=== PATIENT | male | born 1950 | race Caucasian/White ===

== ENCOUNTER 2018-10-22 21:56 | Inpatient (IN) | payer MEDICARE, BC ==
[~2018-10-22] VITALS: Ht 182.9 cm; Wt 90.0 kg
[2018-10-22 23:29] LABS: BASOPHILS # (AUTO) 0.1 X10'3 (0-0.2); BASOPHILS % (AUTO) 1.2 % (0-1); EOSINOPHILS # (AUTO) 0.3 X10'3 (0-0.9); HEMATOCRIT 24.4 % (42.0-52.0); LYMPHOCYTES # (AUTO) 1.5 X10'3 (1.1-4.8); LYMPHOCYTES % (AUTO) 31.6 % (21-51); MEAN CORPUSCULAR HEMOGLOBIN 29.5 PG (27.0-31.0); MEAN CORPUSCULAR HGB CONC 32.6 g/dL (33.0-36.5); MEAN CORPUSCULAR VOLUME 90.5 FL (78-98); MEAN PLATELET VOLUME 8.2 FL (7.4-10.4); MONOCYTES # (AUTO) 0.7 X10'3 (0-0.9); NEUTROPHILS # (AUTO) 2.1 X10'3 (1.8-7.7); NEUTROPHILS % (AUTO) 45.2 % (42-75); PLATELET COUNT 227 X10'3 (140-440); RED CELL DISTRIBUTION WIDTH 13.2 % (11.5-14.5); WHITE BLOOD COUNT 4.6 X10'3 (4.5-11.0)
--- NOTE | 2018-10-22 23:30 | NUR ---
labs drawn, piv inplace, vss, pt's at bedside. awaiting lab results.
[2018-10-22 23:36] LABS: ALANINE AMINOTRANSFERASE 34 U/L (12-78); ALBUMIN/GLOBULIN RATIO 1.1 (1.1-1.5); ALKALINE PHOSPHATASE 38 IU/L (46-116); ANION GAP 6 (8-16); ASPARTATE AMINO TRANSFERASE 16 U/L (10-37); BILIRUBIN,TOTAL 0.2 MG/DL (0.1-1.0); BLOOD UREA NITROGEN 21 MG/DL (7-18); BUN/CREATININE RATIO 18.6 (5.4-32.0); CALCIUM 8.8 MG/DL (8.5-10.1); CHLORIDE 108 MMOL/L (99-107); CREATININE 1.13 MG/DL (0.60-1.10); GLUCOSE 151 MG/DL (70-104); POTASSIUM 3.8 MMOL/L (3.5-5.1); SODIUM 142 MMOL/L (135-145); TOTAL PROTEIN 5.7 G/DL (6.4-8.2); eGFR 65 ML/MIN
[2018-10-22 23:39] LABS: PARTIAL THROMBOPLASTIN TIME 23 SECONDS (22-32); PROTHROMBIN TIME 10.6 SECONDS (9.0-12.0)
[2018-10-22] MEDS ORDERED: normal saline 1000ML IV soln IVB ONE (23:55)
--- NOTE | 2018-10-22 23:55 | NUR ---
DR. GUY AT BEDSIDE, PT TO BE PUT UP FOR ADMIOSSION.
[2018-10-23] MEDS ORDERED: morphine 4 MG/ML inj SYRINge IV PRN ×2 (00:20)
[2018-10-23] MEDS ORDERED: magnesium hydroxide 30ml (MOM) UD suspension PO PRN (00:20)
[2018-10-23] MEDS ORDERED: HYDROcodone/acetaminophen 5mg/325mg tablet PO PRN (00:20)
[2018-10-23] MEDS ORDERED: acetaminophen 325mg tablet PO PRN (00:20)
[2018-10-23] MEDS ORDERED: ondansetron/PF 4mg/2ml inj IV PRN (00:20)
[2018-10-23] MEDS ORDERED: mag hydrox/Alum hydrox/simeth 30ml oral suspension PO PRN (00:20)
[2018-10-23] MEDS: normal saline 1000ml 1,000 ML IV SCH ×3 (00:55→20:16)
--- NOTE | 2018-10-23 01:08 | NUR ---
REPORT TO CHATA CARLISLE, ORTHO. IPA [id number]. PT WITH STABLE VS AND DENIES ANY PAIN.
[2018-10-23 01:30] VITALS: BP 104/46
[2018-10-23 06:00] VITALS: BP 121/50
--- NOTE | 2018-10-23 06:40 | NUR ---
REPORT GIVEN TO CHATA HUITRON.
[2018-10-23 10:00] VITALS: BP 114/59
[2018-10-23] MEDS ORDERED: magnesium Cl slow-release 64mg tablet PO PRN (10:25)
[2018-10-23] MEDS ORDERED: magnesium 4gm in 100ml NS 100 ML IV PRN (10:25)
[2018-10-23] MEDS ORDERED: potassium Cl 20 mEq SR tablet PO PRN ×2 (10:25)
[2018-10-23] MEDS ORDERED: potassium Cl 40MEQ/NS 500ml 500 ML IV PRN ×2 (10:25)
[2018-10-23] MEDS ORDERED: APIX5TAB3 PO (10:30)
[2018-10-23] MEDS ORDERED: ATOR40TA72 PO (10:30)
[2018-10-23] MEDS ORDERED: TIMO5SOL8 LEFTEYE (10:30)
[2018-10-23 12:33] LABS: BASOPHILS % (AUTO) 0.9 % (0-1); EOSINOPHILS # (AUTO) 0.3 X10'3 (0-0.9); EOSINOPHILS % (AUTO) 5.9 % (0-6); HEMATOCRIT 24.9 % (42.0-52.0); HEMOGLOBIN 8.1 g/dl (14.0-17.9); LYMPHOCYTES # (AUTO) 1.1 X10'3 (1.1-4.8); LYMPHOCYTES % (AUTO) 22.5 % (21-51); MEAN CORPUSCULAR HEMOGLOBIN 29.3 PG (27.0-31.0); MEAN CORPUSCULAR HGB CONC 32.3 g/dL (33.0-36.5); MEAN CORPUSCULAR VOLUME 90.7 FL (78-98); MEAN PLATELET VOLUME 7.8 FL (7.4-10.4); MONOCYTES # (AUTO) 0.7 X10'3 (0-0.9); MONOCYTES % (AUTO) 15.3 % (2-12); NEUTROPHILS # (AUTO) 2.6 X10'3 (1.8-7.7); NEUTROPHILS % (AUTO) 55.4 % (42-75); PLATELET COUNT 228 X10'3 (140-440); RED BLOOD COUNT 2.75 X10'6 (4.70-6.10); RED CELL DISTRIBUTION WIDTH 13.7 % (11.5-14.5); WHITE BLOOD COUNT 4.7 X10'3 (4.5-11.0)
[2018-10-23] MEDS ORDERED: PEG 3350/Na sulf,bicarb,Cl/KCl oral sol 4 liter bottle PO ONE ×2 (12:40→18:00)
[2018-10-23 18:00] VITALS: BP 113/61
[2018-10-23 20:00] VITALS: BP 123/65
[2018-10-23 22:00] VITALS: BP 123/65
[2018-10-24] VITALS (10 sets, daily range): BP systolic 95–130; BP diastolic 46–65
[2018-10-24 06:04] LABS: BASOPHILS % (AUTO) 0.4 % (0-1); EOSINOPHILS # (AUTO) 0.2 X10'3 (0-0.9); EOSINOPHILS % (AUTO) 2.9 % (0-6); HEMATOCRIT 23.2 % (42.0-52.0); HEMOGLOBIN 7.8 g/dl (14.0-17.9); LYMPHOCYTES # (AUTO) 1.3 X10'3 (1.1-4.8); LYMPHOCYTES % (AUTO) 21.4 % (21-51); MEAN CORPUSCULAR HEMOGLOBIN 30.2 PG (27.0-31.0); MEAN CORPUSCULAR HGB CONC 33.7 g/dL (33.0-36.5); MEAN CORPUSCULAR VOLUME 89.6 FL (78-98); MEAN PLATELET VOLUME 8.2 FL (7.4-10.4); MONOCYTES # (AUTO) 0.6 X10'3 (0-0.9); MONOCYTES % (AUTO) 10.7 % (2-12); NEUTROPHILS # (AUTO) 3.9 X10'3 (1.8-7.7); NEUTROPHILS % (AUTO) 64.6 % (42-75); PLATELET COUNT 222 X10'3 (140-440); RED BLOOD COUNT 2.59 X10'6 (4.70-6.10); RED CELL DISTRIBUTION WIDTH 13.8 % (11.5-14.5)
--- NOTE | 2018-10-24 06:05 | NUR ---
Patient in room ORTHO 4024. I have received report from RODRIGO BRIZUELA and had the opportunity to ask questions and assume patient care.
[2018-10-24 06:06] LABS: ALBUMIN 2.6 G/DL (3.4-5.0); ANION GAP 9 (8-16); BLOOD UREA NITROGEN 12 MG/DL (7-18); BUN/CREATININE RATIO 13.2 (5.4-32.0); CHLORIDE 112 MMOL/L (99-107); CREATININE 0.91 MG/DL (0.60-1.10); GLUCOSE 96 MG/DL (70-104); POTASSIUM 3.8 MMOL/L (3.5-5.1); SODIUM 146 MMOL/L (135-145); TOTAL CARBON DIOXIDE 25.4 MMOL/L (24-32); eGFR 83 ML/MIN
[2018-10-24] MEDS: normal saline 1000ml 1,000 ML IV SCH ×3 (06:16→21:03)
[2018-10-24 07:01] LABS: CLARITY,URINE CLEAR (Clear); COLOR,URINE YELLOW (Yellow); GLUCOSE, URINE NEGATIVE (Neg); KETONES,URINE NEGATIVE (Neg); LEUKOCYTE ESTERASE ,URINE NEGATIVE (Neg); NITRITES, URINE NEGATIVE (Neg); OCCULT BLOOD,URINE NEGATIVE (Neg); PROTEIN,URINE NEGATIVE (Neg); UROBILINOGEN,URINE 0.2 E.U/dL (0.2-1.0)
[2018-10-24 07:02] LABS: UA COLLECTION TYPE NON-SPECIFIED
[2018-10-24] MEDS: atorvastatin 20mg tablet PO SCH (08:00)
[2018-10-24] MEDS: timolol XE 0.5% ophth GEL forming sol 5ml LEFTEYE SCH (08:23)
[2018-10-24] MEDS ORDERED: MIDAZolam 5mg/5ml vial ONE (09:02)
[2018-10-24] MEDS ORDERED: fentaNYL/PF 50MCG/1 ML 2ML syringe ONE (09:02)
[2018-10-24] MEDS ORDERED: LIDOcaine Viscous 15ml cup ONE (09:03)
[2018-10-24] MEDS: pantoprazole 40mg Tablet.DR PO SCH (17:15)
--- NOTE | 2018-10-24 18:25 | NUR ---
Problems reprioritized. Patient report given, questions answered & plan of care reviewed with FIONA BRIZUELA.
--- NOTE | 2018-10-24 18:31 | NUR ---
Patient in room ORTHO 4024. I have received report from CHATA Leonard and had the opportunity to ask questions and assume patient care.
[2018-10-24] MEDS ORDERED: hydrocort. acetate/pramoxine 10gm bottle RC PRN (21:25)
[2018-10-25 06:00] VITALS: BP 109/53
--- NOTE | 2018-10-25 06:25 | NUR ---
Problems reprioritized. Patient report given, questions answered & plan of care reviewed with CHATA Cheek and CHATA Bey student.
--- NOTE | 2018-10-25 06:25 | NUR ---
Patient in room ORTHO 4024. I have received report from Munira BRIZUELA and had the opportunity to ask questions and assume patient care.
[2018-10-25] MEDS: pantoprazole 40mg Tablet.DR PO SCH (07:42)
[2018-10-25] MEDS: atorvastatin 20mg tablet PO SCH (07:42)
[2018-10-25] MEDS: timolol XE 0.5% ophth GEL forming sol 5ml LEFTEYE SCH (07:42)
[2018-10-25 07:56] LABS: BASOPHILS % (AUTO) 0.9 % (0-1); EOSINOPHILS # (AUTO) 0.2 X10'3 (0-0.9); EOSINOPHILS % (AUTO) 4.7 % (0-6); HEMATOCRIT 24.3 % (42.0-52.0); HEMOGLOBIN 7.9 g/dl (14.0-17.9); LYMPHOCYTES # (AUTO) 1.3 X10'3 (1.1-4.8); LYMPHOCYTES % (AUTO) 25.5 % (21-51); MEAN CORPUSCULAR HEMOGLOBIN 29.3 PG (27.0-31.0); MEAN CORPUSCULAR HGB CONC 32.5 g/dL (33.0-36.5); MEAN CORPUSCULAR VOLUME 90.2 FL (78-98); MEAN PLATELET VOLUME 8.2 FL (7.4-10.4); MONOCYTES # (AUTO) 0.6 X10'3 (0-0.9); MONOCYTES % (AUTO) 11.7 % (2-12); NEUTROPHILS % (AUTO) 57.2 % (42-75); PLATELET COUNT 222 X10'3 (140-440); RED BLOOD COUNT 2.69 X10'6 (4.70-6.10); RED CELL DISTRIBUTION WIDTH 13.7 % (11.5-14.5); WHITE BLOOD COUNT 5.2 X10'3 (4.5-11.0)
[2018-10-25 08:18] LABS: ALBUMIN 2.7 G/DL (3.4-5.0); ANION GAP 9 (8-16); BLOOD UREA NITROGEN 13 MG/DL (7-18); BUN/CREATININE RATIO 13.8 (5.4-32.0); CALCIUM 7.9 MG/DL (8.5-10.1); CHLORIDE 110 MMOL/L (99-107); CREATININE 0.94 MG/DL (0.60-1.10); GLUCOSE 88 MG/DL (70-104); POTASSIUM 3.9 MMOL/L (3.5-5.1); SODIUM 143 MMOL/L (135-145); TOTAL CARBON DIOXIDE 24.4 MMOL/L (24-32); eGFR 80 ML/MIN
[2018-10-25] MEDS ORDERED: FERR325T28 PO (09:10)
[2018-10-25] MEDS ORDERED: PANT40TA4 PO (09:10)
[2018-10-25] MEDS ORDERED: PSYL1040 PO (09:10)
[2018-10-25] MEDS ORDERED: DOCU-28 PO (09:10)
[2018-10-25] MEDS ORDERED: PROCHC RC (09:12)
[2018-10-25 10:10] VITALS: BP 110/45
--- NOTE | 2018-10-25 11:00 | NUR ---
Patient stable for discharge home today. All discharge instructions given to patient and questions answered. Patient discharged home at 1030 with .
== END 2018-10-25 10:29 | disposition home or self-care (01) | DRG 394 ==
LOC: ER 21:56 → ED HOLD 10-23 00:16 → CMPBEDREQ 10-23 01:41 → ORTHO 4S 10-23 01:42
PROVIDERS: ADMIT Internal Medicine; ATTEND Family Medicine
PROC: 0DB98ZX Excision of Duodenum, Via Natural or Artificial Opening Endoscopic, Diagnostic (ICD-10-PCS; principal; 2018-10-24)
PROC: 0DB48ZX Excision of Esophagogastric Junction, Via Natural or Artificial Opening Endoscopic, Diagnostic (ICD-10-PCS; 2018-10-24)
PROC: 0DJD8ZZ Inspection of Lower Intestinal Tract, Via Natural or Artificial Opening Endoscopic (ICD-10-PCS; 2018-10-24)
DX: K64.8 Other hemorrhoids (principal); D62 Acute posthemorrhagic anemia; K44.9 Diaphragmatic hernia without obstruction or gangrene; K21.0 Gastro-esophageal reflux disease with esophagitis; K57.30 Diverticulosis of large intestine without perforation or abscess without bleeding; K29.70 Gastritis, unspecified, without bleeding; Z90.79 Acquired absence of other genital organ(s); Z79.01 Long term (current) use of anticoagulants; Z85.46 Personal history of malignant neoplasm of prostate; Z86.718 Personal history of other venous thrombosis and embolism; Z86.711 Personal history of pulmonary embolism; Z80.6 Family history of leukemia
CPT/HCPCS: 36415; 43239; 45378; 76775; 80048; 80053; 81003; 85025; 85610; 85730; 86885; 86900; 86901; 87070; 88305; 99152; 99153; 99285; A4620; G0378; J2250; J3010; J7030